=== PATIENT | female | born 1965 | race African-American/Black ===

== ENCOUNTER 2019-07-31 12:55 | Emergency (ER) | payer OTHER ==
--- NOTE | 2019-07-31 13:03 | ER Document Report ---
ED Medical Screen (RME) - General Chief Complaint: Urinary Frequency Stated Complaint: FREQUENT URINATION/URGENCY Time Seen by Provider: 07/31/19 12:58 Mode of Arrival: Wheelchair Information source: Patient Notes: 54-year-old male presents to ED for urinary frequency right flank pain abdominal pain left eye pain she states that she has had this pain since the last time she was here she is taking all the medicines that she was given she is also been taking Azo and she is not getting any better. She states she cannot stand to continue pain and pain and there has to be a reason that she is having this much pain. Patient is alert and oriented respirations regular nonlabored speaking in full sentences. We will get some blood and a clean and dirty urine at this time and have her seen by another provider. I have greeted and performed a rapid initial assessment of this patient. A comprehensive ED assessment and evaluation of the patient, analysis of test results and completion of medical decision making process will be conducted by an additional ED providers. - Related Data Allergies/Adverse Reactions: No Known Allergies Allergy (Verified 04/28/19 12:53) Past Medical History Past Surgical History: Reports: Hx Gastric Bypass Surgery, Hx Genitourinary Surgery - Bypass
[2019-07-31 13:55] LABS: ABSOLUTE BASOPHILS # (AUTO) 0.1 10^3/uL (0.0-0.2); ABSOLUTE EOSINOPHILS # (AUTO) 0.1 10^3/uL (0.0-0.6); ABSOLUTE LYMPHOCYTES (AUTO) 1.9 10^3/uL (0.5-4.7); ABSOLUTE MONOCYTES (AUTO) 0.5 10^3/uL (0.1-1.4); ABSOLUTE NEUT (AUTO) 3.5 10^3/uL (1.7-8.2); BASOPHILS % (AUTO) 1.1 % (0-2); HEMATOCRIT 34.3 % (36.0-47.0); HEMOGLOBIN 11.5 g/dL (12.0-15.5); LYMPHOCYTES % (AUTO) 31.7 % (13-45); MEAN CORPUSCULAR HEMOGLOBIN 26.6 pg (27.0-33.4); MEAN CORPUSCULAR HGB CONC 33.6 g/dL (32.0-36.0); MEAN CORPUSCULAR VOLUME 79 fl (80-97); PLATELET COUNT 357 10^3/uL (150-450); RED BLOOD COUNT 4.32 10^6/uL (3.72-5.28); RED CELL DISTRIBUTION WIDTH 14.4 % (11.5-14.0); SEGMENTED NEUTROPHILS % (AUTO) 57.2 % (42-78); TOTAL CELLS COUNTED % (AUTO) 100 %; WHITE BLOOD COUNT 6.1 10^3/uL (4.0-10.5)
[2019-07-31 14:07] LABS: ALKALINE PHOSPHATASE 164 U/L (38-126); ANION GAP 7 (5-19); ASPARTATE AMINO TRANSFERASE 24 U/L (14-36); BILIRUBIN,DIRECT 0.1 mg/dL (0.0-0.4); BILIRUBIN,TOTAL 0.5 mg/dL (0.2-1.3); BLOOD UREA NITROGEN 18 mg/dL (7-20); CALCIUM 9.2 mg/dL (8.4-10.2); CARBON DIOXIDE 31 mmol/L (22-30); CHLORIDE 102 mmol/L (98-107); GLUCOSE 78 mg/dL (75-110); POTASSIUM 4.3 mmol/L (3.6-5.0); TOTAL PROTEIN 7.7 g/dL (6.3-8.2)
[2019-07-31 14:12] LABS: APPEARANCE,URINE CLEAR; BILIRUBIN,URINE NEGATIVE (NEGATIVE); COLOR,URINE AMBER; GLUCOSE, URINE NEGATIVE (NEGATIVE); KETONES,URINE NEGATIVE (NEGATIVE); PROTEIN,URINE NEGATIVE (NEGATIVE); URINE SPECIFIC GRAVITY 1.017
--- NOTE | 2019-07-31 14:20 | ER Document Report ---
ED GI/ - General Chief Complaint: Urinary Problem Stated Complaint: FREQUENT URINATION/URGENCY Time Seen by Provider: 07/31/19 12:58 Mode of Arrival: Wheelchair Notes: HPI: 54-year-old female that states she has had around 3 months of some right lower back pain radiating into her right groin with some increased urinary frequency and dysuria. She was seen here in December around 2 and half months ago and got diagnosed with a urinary tract infection with an unremarkable CT scan of the abdomen and pelvis. Patient states she did complete the course of antibiotics and felt transiently well for around 5 days. She states that she has had no vaginal discharge, fevers, or vomiting. She denies absolutely any and all upper abdominal pain. Patient does state that the pain gets worse with sex. She denies being a diabetic. She does have a history of gastric bypass around 18 years ago. She has had no vomiting or diarrhea. On last visit the patient did have an ultrasound of the abdomen which did show possible gallbladder pathology. General surgery was consulted and did not believe it was gallbladder pathology. Patient denies any exacerbation with food and any upper abdominal discomfort. On review of systems the patient also complains of a left frontal headache and felt that her eye looked a little red this morning. She denies any trauma to the head or face. She denies any double or blurry vision on my exam. No runny nose, congestion, cough, or fevers. ROS: See HPI All other review of systems reviewed and otherwise negative Reviewed vital signs and nursing note as charted by RN. PHYSICAL EXAM: CONSTITUTIONAL: Alert and oriented and responds appropriately to questions. Well-appearing; well-nourished HEAD: Normocephalic; atraumatic EYES: PERRL; Conjunctivae clear, full painless extraocular range of motion; no periorbital swelling; visual acuity was 2530 to bilateral eyes independently; sclerae non-icteric ENT: Normal nose; no rhinorrhea; moist mucous membranes; pharynx without lesions noted NECK: Supple without meningismus; non-tender; no cervical lymphadenopathy, no masses CARD: Regular rate and rhythm; no murmurs; symmetric distal pulses RESP: Normal chest excursion without splinting or tachypnea; breath sounds clear and equal bilaterally; no wheezes, no rhonchi, no rales ABD/GI: Normal bowel sounds; non-distended; soft, non-tender on my examination to deep palpation of all 4 quadrants of the abdomen including the lower abdomen right upper quadrant BACK: The back appears normal and is non-tender to palpation EXT: Normal ROM in all joints; non-tender to palpation; no edema SKIN: No acute lesions noted NEURO: CN 2-12 intact; 5/5 bilateral upper and lower extremity strength with sensation intact to light touch PSYCH: The patient's mood and manner are appropriate. Grooming and personal hygiene are appropriate. - Related Data Allergies/Adverse Reactions: No Known Allergies Allergy (Verified 04/28/19 12:53) Past Medical History - General Information source: Patient - Social History Smoking Status: Former Smoker Family History: Reviewed & Not Pertinent Patient has suicidal ideation: No Patient has homicidal ideation: No Past Surgical History: Reports: Hx Gastric Bypass Surgery, Hx Genitourinary [place] rgery - Bypass Physical Exam - Vital signs Vitals: Temp Pulse Resp BP Pulse Ox 98.5 F 76 16 142/90 H 94 07/31/19 13:00 07/31/19 13:00 07/31/19 13:00 07/31/19 13:00 07/31/19 13:00 - HEENT Visual acuity- Right eye: 20/30 -1 Visual acuity- Left eye: 20/30 -1 Visual acuity- Both eyes: 20/25 Corrective lenses worn: No Course - Re-evaluation Re-evalutation: 07/31/19 14:19 Given the above history and physical a renal ultrasound as well as basic labs and urine analysis was ordered in triage. Given the symptomatology of increased urinary frequency with pain with sexual intercourse, I do believe that this may be problem. I will perform a pelvic examination. Given the patient's eye complaints, she has no blurry vision with extraocular pressures being normal with normal visual acuity. No temporal erythema or tenderness. No fevers. No head trauma. No weakness or numbness to the arms or the legs. 07/31/19 14:44 Urine analysis is nitrite positive. Urine culture has been sent. Previous culture grew mixed urogenital yoselin. White blood cell count is recorded. Ultrasound as recorded. Pelvic examination shows no obvious external or internal lesions. Patient does have what appears to be a mild bladder prolapse. No tenderness with insertion of the speculum. Minimal white vaginal discharge in the vaginal vault with no cervical motion tenderness. 03/21/20 15:10 Labs and imaging as recorded. No repeat tenderness on exam. Patient's headache is resolved without intervention. No double or blurry vision. Patient does have insurance but does not have a primary [employer] COMP[employer]ER. We will provide her with these. Patient will be discharged home with strict return precautions and follow-up with the primary provider with urine culture pending up with a course of Keflex prescribed. Pending GC/Chl results. - Vital Signs Vital signs: Temp Pulse Resp BP Pulse Ox 98.5 F 76 16 142/90 H 94 07/31/19 13:00 07/31/19 13:00 07/31/19 13:00 07/31/19 13:00 07/31/19 13:00 - Laboratory Result Diagrams: 07/31/19 13:15 07/31/19 13:15 Laboratory results interpreted by me: 07/31/19 07/31/19 07/31/19 13:07 13:15 13:15 Hgb 11.5 L Hct 34.3 L MCV 79 L MCH 26.6 L RDW 14.4 H Carbon Dioxide 31 H Alkaline Phosphatase 164 H Urine Nitrite (Reflex) POSITIVE H Urine Urobilinogen 2.0 H Discharge - Discharge Clinical Impression: Dysuria Headache Qualifiers: Headache type: unspecified Headache chronicity pattern: acute headache Intractability: not intractable Qualified Code(s): R51 - Headache Condition: Good Disposition: HOME, SELF-CARE Additional Instructions: Come back immediately for any increased pain, change in location or quality of pain, vomiting, blurry or double vision, weakness or numbness, fevers, or any other acute problems. Please take the antibiotics as prescribed and follow-up with the SUR[employer]Y COMP[employer]ER we have provided. Prescriptions: Cephalexin Monohydrate [Keflex 500 mg Capsule] 500 mg PO Q8H 10 Days #30 capsule Referrals: MEEK CARLTON MD [ACTIVE STAFF] - Follow up as needed
--- NOTE | 2019-07-31 14:32 | RADIOLOGY REPORT (SQ) ---
EXAM DESCRIPTION: U/S RETROPERITON (RENAL/AORTA) COMPLETED DATE/TIME: 07/31/2019 1:51 pm REASON FOR STUDY: right flank pain COMPARISON: None. TECHNIQUE: Dynamic and static grayscale images acquired of the kidneys and bladder and recorded on P ACS. Additional selected color Doppler and spectral images recorded. LIMITATIONS: None. FINDINGS: RIGHT KIDNEY: Normal size. Normal echogenicity. No solid or suspicious masses. No hydronep hrosis. No calcifications. LEFT KIDNEY: Normal size. Normal echogenicity. No solid or suspicious masses. No hydronephrosis. No calcifications. BLADDER: No masses. OTHER FINDINGS: No other significant finding. IMPRESSION: NORMAL RENAL AND BLADDER ULTRASOUND. TECHNICAL DOCUMENTATION: JOB ID: [id number] [employer]- All Rights Reserved Reading location - IP/workstation name: [email or web address]
[2019-07-31] MEDS ORDERED: CEPHALEXIN 500 MG CAPSULE PO ONE (14:44)
[2019-07-31 14:55] LABS: T.VAGINALIS (WET MOUNT) NO TRICHOMONAS SEEN; YEAST (WET MOUNT) NO YEAST SEEN
[2019-07-31 14:56] LABS: BACTERIA (WET MOUNT) 4+ BACTERIA SEEN; EPITHELIALS (WET MOUNT) 4+ EPITHELIALS SEEN; RBCS (WET MOUNT) RARE RBCS SEEN; WBCS (WET MOUNT) FEW WBCS SEEN
[2019-07-31 15:44] LABS: CHLAM PCR NOT DETECTED (NOT DETECT)
[2019-07-31 15:45] VITALS: BP 139/85
== END 2019-07-31 15:11 | disposition home or self-care (01) ==
LOC: ER 12:55
DX: R30.0 Dysuria (principal); R51 Headache; R35.0 Frequency of micturition; R39.15 Urgency of urination; M54.5 Low back pain; R10.31 Right lower quadrant pain; Z87.891 Personal history of nicotine dependence
CPT/HCPCS: 36415; 76770; 80053; 81001; 83690; 85025; 86592; 87086; 87210; 87491; 87591; 99284